=== PATIENT | female | born 1960 | race Two or more races ===

== ENCOUNTER 2024-12-31 18:59 | Emergency (ER) | payer OTHER ==
[~2024-12-31] VITALS: Ht 152.4 cm; Wt 68.0 kg
[2024-12-31] MEDS ORDERED: ZETIA10 MG PO (19:11)
[2024-12-31] MEDS ORDERED: ROSUVASTATIN CA10 MG PO (19:11)
[2024-12-31] MEDS ORDERED: MOUNJARO2.5 MG/0.5 SQ (19:11)
[2024-12-31] MEDS ORDERED: ACETAMINOPHEN 500 MG GEL..CAP PO ONE (19:30)
== END 2024-12-31 22:49 ==
LOC: ER 19:00
DX: S00.83XA Contusion of other part of head, initial encounter (principal); S09.90XA Unspecified injury of head, initial encounter; X58.XXXA Exposure to other specified factors, initial encounter; Y93.89 Activity, other specified; Y92.89 Other specified places as the place of occurrence of the external cause; Y99.8 Other external cause status; I10 Essential (primary) hypertension; Z91.013 Allergy to seafood